=== PATIENT | female | born 1990 | race African-American/Black ===

== ENCOUNTER → 2017-10-14 14:19 | Outpatient (CLI) | payer MEDICAID ==
[~2017-10-14 14:19] MED LIST: MOTRIN600 MG PO; PERCOCET 5/3251 TA1 PO; PRENATAL COMPLE1 TAB PO
[2017-11-04 10:46] VITALS: BMI 31.6
== END | disposition home or self-care (01) ==
LOC: D.LDO 14:19
PROVIDERS: Obstetrics & Gynecology
DX: O24.419 Gestational diabetes mellitus in pregnancy, unspecified control (principal); Z3A.00 Weeks of gestation of pregnancy not specified

== ENCOUNTER → 2017-10-17 10:46 | Outpatient (CLI) | payer MEDICAID ==
[2017-11-04 10:46] VITALS: BMI 31.6
== END | disposition home or self-care (01) ==
LOC: D.LDO 10:46
DX: O24.913 Unspecified diabetes mellitus in pregnancy, third trimester (principal); Z3A.33 33 weeks gestation of pregnancy

== ENCOUNTER 2017-10-21 10:30 | Outpatient (CLI) | payer MEDICAID ==
[2017-10-21 14:14] LABS: BASOPHILS 0.3 % (0-2); EOSINOPHILS 1.7 % (0-7); HEMATOCRIT 35.3 % (36.0-48.0); HEMOGLOBIN 11.3 g/dL (12-16); IMMATURE GRANULOCYTES 4.2 % (0-5); LYMPHOCYTES 23.5 % (15-50); MCH 25.5 pg (26.0-34.0); MCV 79.5 fL (80.0-100.0); MEAN PLATELET VOLUME 11.1 fL (7.4-10.4); MONOCYTES 11.4 % (2-11); NEUTROPHILS 58.9 % (40-80); PLATELET COUNT 177 10x3/uL (130-400); RBC 4.44 10x6/uL (4.00-5.40); RDW 14.9 % (11.5-14.5)
[2017-11-04 10:46] VITALS: BMI 31.6
== END 2017-10-22 17:30 ==
LOC: D.LDO 10:30 → D.LD 22:00 → D.LDO 10-22 10:30
PROVIDERS: Obstetrics & Gynecology
DX: O24.419 Gestational diabetes mellitus in pregnancy, unspecified control (principal); Z3A.34 34 weeks gestation of pregnancy

== ENCOUNTER → 2017-10-24 10:04 | Outpatient (CLI) | payer MEDICAID ==
[2017-11-04 10:46] VITALS: BMI 31.6
== END | disposition home or self-care (01) ==
LOC: D.LDO 10:04
DX: O26.893 Other specified pregnancy related conditions, third trimester (principal); Z3A.34 34 weeks gestation of pregnancy

== ENCOUNTER → 2017-10-28 10:24 | Outpatient (CLI) | payer MEDICAID ==
[2017-11-04 10:46] VITALS: BMI 31.6
== END | disposition home or self-care (01) ==
LOC: D.LDO 10:24
DX: O24.419 Gestational diabetes mellitus in pregnancy, unspecified control (principal); Z3A.35 35 weeks gestation of pregnancy

== ENCOUNTER → 2017-10-29 16:10 | Outpatient (CLI) | payer MEDICAID ==
[2017-11-04 10:46] VITALS: BMI 31.6
== END | disposition home or self-care (01) ==
LOC: D.LDO 16:10
DX: O24.419 Gestational diabetes mellitus in pregnancy, unspecified control (principal); Z3A.35 35 weeks gestation of pregnancy

== ENCOUNTER → 2017-10-31 12:11 | Outpatient (CLI) | payer MEDICAID ==
[2017-11-04 10:46] VITALS: BMI 31.6
== END | disposition home or self-care (01) ==
LOC: D.LDO 12:11
DX: O24.419 Gestational diabetes mellitus in pregnancy, unspecified control (principal); Z3A.35 35 weeks gestation of pregnancy

== ENCOUNTER 2017-11-03 15:33 | Inpatient (IN) | payer MEDICAID ==
[~2017-11-03] VITALS: Ht 175.3 cm; Wt 97.1 kg
--- NOTE | ~2017-11-03 | DS ---
PATIENT:CHARLY MARCELO :89 MEDICAL RECORD: [id number] DISCHARGE SUMMARY ADMISSION DATE: 11/03/17 DISCHARGE DATE: 11/07/17 SUBJECTIVE: The patient is a 27-year-old G2, P1 at 36 weeks and 2 days with a history of gestational diabetes and decelerations at a previous nonstress test. The patient had been admitted due to a deceleration on the nonstress test performed on that day due to the history of gestational diabetes. The patient was noted to be B positive, group B strep negative, and rubella immune. PAST MEDICAL HISTORY: Medical history is significant for gestational diabetes and chlamydial infection during the current . FAMILY HISTORY: The patient reported no significant surgical history. ALLERGIES: SHRIMP. MEDICATIONS: Included vitamins. FAMILY HISTORY: The patient reported no significant family history. SOCIAL HISTORY: Negative times 3. PHYSICAL EXAMINATION: VITAL SIGNS: On initial assessment, vital signs are stable. The patient was normotensive and afebrile. LUNGS: Clear to auscultation. CARDIOVASCULAR: Regular rate and rhythm. PELVIC: Uterus was appropriately sized and nontender. EXTREMITIES: Lower extremities were free of Homans sign. LABORATORY DATA: Admitting hemoglobin was found to be 10.9 with a platelet count of 204. ASSESSMENT AND PLAN: at that time; 1. Intrauterine at 36 weeks and 2 days. 2. decelerations. 3. A2 gestational diabetes. 4. History of chlamydia. The patient was started on Pitocin, which resulted in recurrent variable decelerations. Pitocin does discontinued at that time, the patient was consented for and was performed without difficulty. Operative report is as dictated. Overnight on postop day #0, the patient did well with IV Dilaudid and Toradol. The patient is tolerating clear liquids. Bloom catheter was in place and draining freely. SCDs were on and functioning appropriately. Overnight on postop day #0, the patient had a febrile episode to 102 and elevation of white blood cell count to 16. Exam on the morning of postop day #1, the uterus was appropriately tender. Incision was clean, dry and intact. There is no clinical evidence of deep vein thrombosis. The patient was placed on p.o. pain meds. Bloom catheter was DISCHARGE SUMMARY REPORT [id number] CHARLY MARCELO discontinued and ambulation begun. Plan at that time to monitor temperature and follow serial white blood cell counts. The patient had no further febrile episodes. White blood cell count had decreased. Hemoglobin was 7.9. The patient was given 1 unit of packed red blood cells. The patient with mild abdominal distention; however, no nausea or vomiting. The patient was tolerating a general diet, ambulating well, and voiding freely. The patient was kept an additional day due to abdominal distention and overnight on postop day #2, the patient has continued to improve. On the morning of postop day #3, vital signs remained stable and has been greater than 48 hours since febrile episode. Hemoglobin was 8.4, status post 1 unit of packed red blood cells. Distention was vastly improved and the patient still tolerating general diet without nausea or vomiting. Incision remained clean, dry, and intact. Uterus was infraumbilical and appropriately tender. The patient was discharged home on postop day #3 with instructions to follow up for staple removal. TRANSINT:[id number] Voice Confirmation ID: [id number] DOCUMENT ID: [id number] ORION WARNER MD CC: [id number] DICTATION DATE: 11/29/17516 PURE PAK MACHINE OPERATOR: 11/29/17612 DIS IN 11/07/17 [facility] [address] [place] [address]
--- NOTE | ~2017-11-03 | OP ---
PATIENT NAME: CHARLY MARCELO MEDICAL RECORD: [id number] :89 LOCATION:[facility].1218 ADMISSION DATE:11/03/17 SURGEON: SURAJ VILLEGAS MD DATE OF OPERATION: 11/04/2017 PREOPERATIVE DIAGNOSIS: intolerance to labor. POSTOPERATIVE DIAGNOSIS: intolerance to labor. PROCEDURE: A primary low transverse section. SURGEON: Suraj Villegas MD ESTIMATED BLOOD LOSS: 1000 cc. INTRAVENOUS FLUIDS: Per anesthesia record. FINDINGS: 1. Viable , Apgars 9 and 9. 2. Placenta delivered manually intact, 3-vessel cord noted. 3. Normal adnexa bilaterally. SPECIMENS: Placenta and cord for gases. COMPLICATIONS: None apparent. PROCEDURE: The patient was taken to the operating room where regional anesthesia was achieved without any difficulty. The patient was then prepped and draped in normal sterile fashion in the dorsal supine position. A Bloom catheter had been placed and was draining freely. SCDs were on and functioning appropriately. Following prep and drape, a Pfannenstiel skin incision was made, extended downward to the underlying subcutaneous fat to the level of the fascia. The fascia was then excised in the midline and dissected bilaterally using the Sparks scissors. Superior and inferior aspect of the fascial incision were then grasped with Dwayne clamps times 2, tented upward, and sharply dissected from the underlying rectus muscle using the Bovie cautery and the Sparks scissors. Rectus muscles were then bluntly in the midline, peritoneum identified and entered sharply at the superior aspect of the incision. The bladder blade was then placed into the pelvis. A bladder flap was created by excising the anterior leaf of the broad ligament across the lower uterine segment. A low transverse incision was made and the uterus entered bluntly using a finger. Uterine incision was then extended superiorly and inferiorly using the Pelosi method and the was delivered and 's head was delivered atraumatically followed by the body. Infant was bulb suctioned upon delivery of the head. The cord was clamped times 2, cut, and then was handed to waiting nursery team. Cord was then obtained for gases. The placenta was then removed manually intact, 3-vessel cord was noted. Uterus was exteriorized, cleared of all clots and debris and vigorously massaged and until a good uterine tone was noted. The uterus was then repaired with 0 Vicryl in a running locked fashion times 2 with good hemostasis noted. Posterior cul-de-sac was then thoroughly irrigated and uterus was replaced in the pelvis. COUNTS: Correct times 2 for instruments, needles and sponges. The fascia was then repaired with 0 loop PDS times 1 and the skin repaired with mao. The patient tolerated the procedure well, transferred to postanesthesia recovery OPERATIVE REPORT [id number] CHARLY MARCELO stable without incident. TRANSINT:[id number] Voice Confirmation ID: [id number] DOCUMENT ID: [id number] SURAJ VILLEGAS MD CC: [id number] DICTATION DATE: 11/29/17511 COUNTER CONTROL OPERATOR: 11/29/17525 DIS IN 11/07/17 [facility] [address] [place] [address]
[2017-11-03 18:31] LABS: HEMATOCRIT 33.9 % (36.0-48.0); HEMOGLOBIN 10.9 g/dL (12-16); MCH 24.8 pg (26.0-34.0); MCHC 32.2 g/dL (31.0-37.0); MEAN PLATELET VOLUME 10.7 fL (7.4-10.4); RBC 4.4 10x6/uL (4.00-5.40); RDW 15.3 % (11.5-14.5); WBC 8.8 10x3/uL (4.8-10.8)
[2017-11-03 19:38] VITALS: BP 140/79; BMI 31.6
[2017-11-03 20:57] LABS: APPEARANCE CLEAR (CLEAR); BILIRUBIN NEGATIVE (NEGATIVE); COLOR YELLOW (YELLOW); GLUCOSE NEGATIVE (NEGATIVE); KETONE NEGATIVE (NEGATIVE); NITRITE NEGATIVE (NEGATIVE); PROTEIN NEGATIVE (NEGATIVE); UROBILINOGEN NORMAL (NORMAL)
[2017-11-03 21:06] LABS: EPITHELIAL CELLS 0-5 /hpf (0-5); RED CELLS - URINE 0-5 /hpf (0-5); WHITE CELLS - URINE 0-5 /hpf (0-5)
[2017-11-03 21:07] LABS: BACTERIA MODERATE /hpf (NONE SEEN)
[2017-11-04] VITALS (10 sets, daily range): BP systolic 121–139; BP diastolic 60–89; Ht 175.3 cm; Wt 97.1 kg
[2017-11-04 07:10] LABS: BASOPHILS 0.1 % (0-2); EOSINOPHILS 0.3 % (0-7); HEMATOCRIT 28.8 % (36.0-48.0); HEMOGLOBIN 9.1 g/dL (12-16); IMMATURE GRANULOCYTES 1.1 % (0-5); LYMPHOCYTES 13.4 % (15-50); MCH 24.5 pg (26.0-34.0); MCHC 31.6 g/dL (31.0-37.0); MCV 77.4 fL (80.0-100.0); MEAN PLATELET VOLUME 10.7 fL (7.4-10.4); MONOCYTES 9.9 % (2-11); NEUTROPHILS 75.2 % (40-80); PLATELET COUNT 166 10x3/uL (130-400); RBC 3.72 10x6/uL (4.00-5.40); RDW 15.3 % (11.5-14.5)
[2017-11-04 07:12] LABS: WBC 11.9 10x3/uL (4.8-10.8)
[2017-11-04 14:15] LABS: BASOPHILS 0.1 % (0-2); EOSINOPHILS 0.3 % (0-7); HEMATOCRIT 27.6 % (36.0-48.0); HEMOGLOBIN 8.8 g/dL (12-16); IMMATURE GRANULOCYTES 1.1 % (0-5); LYMPHOCYTES 7.3 % (15-50); MCH 24.6 pg (26.0-34.0); MCHC 31.9 g/dL (31.0-37.0); MCV 77.1 fL (80.0-100.0); MEAN PLATELET VOLUME 9.8 fL (7.4-10.4); MONOCYTES 8.8 % (2-11); NEUTROPHILS 82.4 % (40-80); PLATELET COUNT 163 10x3/uL (130-400); RBC 3.58 10x6/uL (4.00-5.40); RDW 15.3 % (11.5-14.5); WBC 13.1 10x3/uL (4.8-10.8)
[2017-11-04 22:30] LABS: BASOPHILS 0.1 % (0-2); EOSINOPHILS 0.1 % (0-7); HEMOGLOBIN 8.5 g/dL (12-16); IMMATURE GRANULOCYTES 1.4 % (0-5); LYMPHOCYTES 8.6 % (15-50); MCH 24.2 pg (26.0-34.0); MCHC 31.5 g/dL (31.0-37.0); MCV 76.9 fL (80.0-100.0); MEAN PLATELET VOLUME 10.1 fL (7.4-10.4); MONOCYTES 10.2 % (2-11); NEUTROPHILS 79.6 % (40-80); PLATELET COUNT 171 10x3/uL (130-400); RBC 3.51 10x6/uL (4.00-5.40); RDW 15.4 % (11.5-14.5); WBC 16.1 10x3/uL (4.8-10.8)
[2017-11-04 22:35] LABS: APPEARANCE CLEAR (CLEAR); COLOR YELLOW (YELLOW)
[2017-11-04 22:36] LABS: BILIRUBIN NEGATIVE (NEGATIVE); GLUCOSE 250 mg/dL (NEGATIVE); KETONE NEGATIVE (NEGATIVE); NITRITE NEGATIVE (NEGATIVE); PROTEIN NEGATIVE (NEGATIVE); SPECIFIC GRAVITY 1.015 (1.005-1.020); UROBILINOGEN NORMAL (NORMAL)
[2017-11-04 22:42] LABS: EPITHELIAL CELLS 0-5 /hpf (0-5); RED CELLS - URINE OCC /hpf (0-5); WHITE CELLS - URINE OCC /hpf (0-5)
[2017-11-05 00:27] VITALS: BP 125/62
[2017-11-05 04:00] VITALS: BP 133/76
[2017-11-05 06:15] LABS: RAPID PLASMA REAGIN Non Reactive (Non Reactive)
[2017-11-05 07:45] VITALS: BP 135/85
[2017-11-05 07:47] LABS: BASOPHILS 0.2 % (0-2); EOSINOPHILS 0.4 % (0-7); HEMATOCRIT 25.8 % (36.0-48.0); HEMOGLOBIN 8.2 g/dL (12-16); IMMATURE GRANULOCYTES 1.7 % (0-5); LYMPHOCYTES 10.6 % (15-50); MCH 24.5 pg (26.0-34.0); MCHC 31.8 g/dL (31.0-37.0); MEAN PLATELET VOLUME 10.4 fL (7.4-10.4); MONOCYTES 12.4 % (2-11); NEUTROPHILS 74.7 % (40-80); PLATELET COUNT 173 10x3/uL (130-400); RBC 3.35 10x6/uL (4.00-5.40); RDW 15.5 % (11.5-14.5); WBC 15.6 10x3/uL (4.8-10.8)
[2017-11-05 12:17] VITALS: BP 138/68
[2017-11-05 20:05] VITALS: BP 138/71
[2017-11-06] VITALS (10 sets, daily range): BP systolic 126–146; BP diastolic 68–80
[2017-11-06 06:31] LABS: BASOPHILS 0.2 % (0-2); EOSINOPHILS 2.8 % (0-7); HEMATOCRIT 25.3 % (36.0-48.0); HEMOGLOBIN 7.9 g/dL (12-16); IMMATURE GRANULOCYTES 2.8 % (0-5); LYMPHOCYTES 22.1 % (15-50); MCH 24.2 pg (26.0-34.0); MCHC 31.2 g/dL (31.0-37.0); MCV 77.4 fL (80.0-100.0); MONOCYTES 10.4 % (2-11); NEUTROPHILS 61.7 % (40-80); PLATELET COUNT 186 10x3/uL (130-400); RBC 3.27 10x6/uL (4.00-5.40); RDW 15.4 % (11.5-14.5); WBC 14.4 10x3/uL (4.8-10.8)
[2017-11-07 06:33] LABS: BASOPHILS 0.4 % (0-2); EOSINOPHILS 4.9 % (0-7); HEMOGLOBIN 8.4 g/dL (12-16); IMMATURE GRANULOCYTES 3.1 % (0-5); LYMPHOCYTES 25.4 % (15-50); MCH 24.5 pg (26.0-34.0); MCHC 31.1 g/dL (31.0-37.0); MCV 78.7 fL (80.0-100.0); MEAN PLATELET VOLUME 10.1 fL (7.4-10.4); MONOCYTES 8.6 % (2-11); NEUTROPHILS 57.6 % (40-80); PLATELET COUNT 214 10x3/uL (130-400); RBC 3.43 10x6/uL (4.00-5.40); RDW 15.5 % (11.5-14.5); WBC 10.9 10x3/uL (4.8-10.8)
[2017-11-07 07:40] VITALS: BP 135/83
== END 2017-11-07 17:00 | disposition home or self-care (01) | DRG 765 ==
LOC: D.LDO 15:33 → D.WS 18:09 → D.LD 18:09 → D.WS 11-04 02:58
PROVIDERS: Obstetrics & Gynecology
PROC: 10D00Z1 Extraction of Products of Conception, Low, Open Approach (ICD-10-PCS; principal; 2017-11-04)
DX: O76 Abnormality in fetal heart rate and rhythm complicating labor and delivery (principal); O98.32 Other infections with a predominantly sexual mode of transmission complicating childbirth; Z3A.36 36 weeks gestation of pregnancy; Z37.0 Single live birth; O99.02 Anemia complicating childbirth; O24.429 Gestational diabetes mellitus in childbirth, unspecified control; A56.8 Sexually transmitted chlamydial infection of other sites